=== PATIENT | female | born 1940 | race Caucasian/White ===

== ENCOUNTER → 2018-11-13 | Outpatient (CLI) | payer MEDICARE ==
--- NOTE | 2018-11-15 10:00 | SLEEPCENT ---
DATE OF PROCEDURE: 11/13/2018 ORDERED BY: Maerk Alvarez Nocturnal polysomnography was performed for evaluation of sleep physiology in this patient with complaints of excessive somnolence and nonrestorative sleep who has comorbidities of obstructive lung disease and diastolic heart failure as well as acid reflux. 7 hours and 12 minutes of data were reviewed. There were 272 minutes of sleep identified. Sleep latency was normal at 25 minutes. Rapid eye movement (REM) latency was normal at 79 minutes. Sleep architecture was fair. There were 2 REM cycles noted, but significant fragmentation was seen. Overall sleep efficiency was 63.9%. There was a significant reduction in REM time. The patient's electrocardiogram showed very small complexes, but appeared to be a sinus rhythm with an average heart rate of 62 beats per minute. Electroencephalogram (EEG) showed fairly normal waveforms for awake and sleep stages. There were 129 respiratory events identified of 10 seconds in duration or greater for an apnea-hypopnea index of 28.4. The events were primarily obstructive, not exclusive to sleep stage nor body posture. Arousals from respiratory events occurred 4.6 times per hour and oxygen desaturations were seen well into the 70s. There was minimal activity in the limb leads. Snoring was noted, but other measures of sleep physiology were normal. IMPRESSION: Obstructive sleep apnea syndrome (G47.33). Apnea-hypopnea index of 28.4. RECOMMENDATION: The patient should be encouraged to return to the sleep disorder center for pressure therapy. In the interim, alcohol and sedative avoidance should be practiced and caution exercised during the operation of motor vehicles.
== END ==
LOC: M SLEEP 19:40
PROVIDERS: ATTEND Physician Assistant
DX: G47.33 Obstructive sleep apnea (adult) (pediatric) (principal)

== ENCOUNTER → 2019-01-14 | Outpatient (CLI) | payer MEDICARE, SELFPAY ==
--- NOTE | 2019-01-16 21:23 | SLEEPCENT ---
DATE OF PROCEDURE: 01/14/2019 ORDERED BY: Daniele Alvarez PA-C Nocturnal polysomnography was performed for the titration of pressure therapy in this patient with obstructive sleep apnea syndrome. Apnea-hypopnea index 28.4. For testing, a meebee Eson nasal mask of small size was used, 4 cm of water pressure were applied to the circuit and the lights were extinguished. 7 hours and 19 minutes of data were reviewed. There were 299 minutes of sleep identified. Sleep latency was mildly prolonged at 49 minutes, rapid eye movement (REM) latency likewise at 127 minutes. Sleep architecture improved as the test proceeded. There were two REM cycles noted. Overall sleep efficiency was 69.7%. The electrocardiogram showed a sinus rhythm with an average heart rate of 60 beats per minute. EEG showed normal waveforms for awake and sleep. Respiratory events were fully palliated with continuous positive airway pressure (CPAP) at a pressure of +9. There was some limb activity noted in the EMG leads. Limb movement arousal index of 6.2. IMPRESSION: Obstructive sleep apnea syndrome (G47.33). RECOMMENDATIONS: Nightly use of pressure therapy 9 cm of water.
== END ==
LOC: M SLEEP 19:37
PROVIDERS: ATTEND Physician Assistant
DX: G47.33 Obstructive sleep apnea (adult) (pediatric) (principal)

== ENCOUNTER → 2020-10-29 | Outpatient (REF) | payer MEDICARE ==
[2020-10-29 13:44] LABS: APPEARANCE, URINE CLEAR (CLEAR); BACTERIA, URINE AUTO NEGATIVE (NEGATIVE); BILIRUBIN, URINE AUTO NEGATIVE (NEGATIVE); BLOOD, URINE BLOOD 1+ (NEGATIVE); COLOR, URINE STRAW (YELLOW); GLUCOSE, URINE (UA) AUTO NEGATIVE (NEGATIVE); KETONE, URINE AUTO NEGATIVE (NEGATIVE); LEUKOCYTE ESTERASE, URINE AUTO 3+ (NEGATIVE); MUCUS, URINE SMALL (NEGATIVE); NITRITE, URINE AUTO NEGATIVE (NEGATIVE); PROTEIN, URINE AUTO NEGATIVE (NEGATIVE); RBC, URINE AUTO 0 /HPF (0-3); SPECIFIC GRAVITY URINE AUTO 1.005 (1.002-1.035); SQUAMOUS EPITHELIAL CELL UR AU 0 /HPF (0-6); UROBILINOGEN, URINE AUTO 0.2 mg/dL (0.0-2.0); WBC, URINE AUTO 2 /HPF (0-3)
== END ==
LOC: M SMT 13:22
PROVIDERS: ATTEND Nurse Practitioner Women's Health
DX: N13.30 Unspecified hydronephrosis (principal); Z79.899 Other long term (current) drug therapy

== ENCOUNTER → 2021-01-14 | Outpatient (REF) | payer MEDICARE | LOC: M SMT 17:05 | PROVIDERS: ATTEND Urology | DX: R31.0 Gross hematuria (principal) ==

== ENCOUNTER → 2023-09-11 | Outpatient (CLI) | payer MEDICARE ==
[~2023-09-11] MED LIST: ISOVUE-370 76% 100ML VIAL As Ordered ONE
== END ==
LOC: M RAD 12:48
PROVIDERS: ATTEND Surgery Vascular Surgery
DX: I65.23 Occlusion and stenosis of bilateral carotid arteries (principal)
CPT/HCPCS: 70496; 70498; Q9967